=== PATIENT | male | born 1985 | race Caucasian/White ===

== ENCOUNTER 2017-10-14 14:00 | Emergency (ER) | payer OTHER ==
[~2017-10-14] VITALS: Ht 175.3 cm; Wt 81.7 kg
[~2017-10-14 14:00] MED LIST: ACETAMINOPHEN-1 EAC1 PO; AUGMENTIN 875-1 EACH PO; BACTRIM DS TAB1 EACH PO; IBUPROFEN 600600 M1 PO; IBUPROFEN 800800 M1 PO; LIDOCAINE VISC100 M1 SWISH&SPIT; MEDROLDOSEPACK PO; NAPROSYN500 MG PO; NOHOMEMEDICATIONS; NORCO 5-325 TA1 EACH PO; PENICILLIN V P500 MG PO; PENICILLIN VK500 M1 PO; PERCODAN TABLE1 EACH; PERMETHRIN60 GM TOP; POTASSIUM20 PO; PREDNISONE 20 M20 MG PO; PROAIR HFA8.5 GM INH; PROMETHAZINE12.5 M1 PO; ULTRAM 50MG TAB50 MG PO; VALIUM5 MG PO; VISTARIL 25 MG25 M1 OR; ZPAK PO
[2017-10-14] MEDS ORDERED: IBUPROFEN 600600 M1 PO (14:55)
[2017-10-14] MEDS ORDERED: PENICILLIN V P500 MG PO (14:55)
[2017-10-14 15:11] VITALS: BP 138/88
== END 2017-10-14 15:12 | disposition home or self-care (01) ==
LOC: M.ERS 14:00
DX: K02.9 Dental caries, unspecified (principal)

== ENCOUNTER 2019-06-08 21:07 | Emergency (ER) | payer OTHER ==
[~2019-06-08] VITALS: Ht 175.3 cm; Wt 81.7 kg
[2019-06-08] MEDS ORDERED: NEURONTIN 300300 M1 PO (23:04)
[2019-06-08] MEDS ORDERED: HYDROCODON-ACE1 EAC7 PO (23:04)
[2019-06-08] MEDS ORDERED: CYCLOBENZAPRINE5 MG PO (23:04)
[2019-06-08 23:20] VITALS: BP 139/76
== END 2019-06-08 23:20 | disposition home or self-care (01) ==
LOC: M.ERS 21:07
DX: S13.4XXA Sprain of ligaments of cervical spine, initial encounter (principal); R20.0 Anesthesia of skin; X58.XXXA Exposure to other specified factors, initial encounter; Y93.89 Activity, other specified; Y92.89 Other specified places as the place of occurrence of the external cause; Y99.8 Other external cause status

== ENCOUNTER 2019-07-06 19:20 | Emergency (ER) | payer OTHER ==
[~2019-07-06] VITALS: Ht 175.3 cm; Wt 81.7 kg
[~2019-07-06 19:20] MED LIST changes: +CYCLOBENZAPRINE5 MG PO; +HYDROCODON-ACE1 EAC7 PO; +NEURONTIN 300300 M1 PO
[2019-07-06] MEDS ORDERED: HYDROCODON-ACE1 EAC7 PO (19:58)
[2019-07-06] MEDS ORDERED: CYCLOBENZAPRINE5 MG PO (19:58)
[2019-07-06] MEDS ORDERED: NEURONTIN 300300 M1 PO (19:58)
[2019-07-06 20:06] VITALS: BP 135/80
== END 2019-07-06 20:07 | disposition home or self-care (01) ==
LOC: M.ERS 19:20
DX: S13.8XXA Sprain of joints and ligaments of other parts of neck, initial encounter (principal); W21.00XA Struck by hit or thrown ball, unspecified type, initial encounter; Y93.6A Activity, physical games generally associated with school recess, summer camp and children; Y92.89 Other specified places as the place of occurrence of the external cause; Y99.8 Other external cause status

== ENCOUNTER 2019-08-23 18:21 | Emergency (ER) | payer OTHER ==
[~2019-08-23] VITALS: Ht 175.3 cm; Wt 83.9 kg
[2019-08-23] MEDS ORDERED: MEDROLDOSEPACK PO (18:42)
[2019-08-23] MEDS ORDERED: ROBAXIN 750 MG750 MG PO (18:43)
[2019-08-23] MEDS ORDERED: NORCO 5-325 TA1 EAC1 PO (18:43)
[2019-08-23 19:04] VITALS: BP 127/77
== END 2019-08-23 19:06 | disposition home or self-care (01) ==
LOC: M.ERS 18:21
DX: M54.12 Radiculopathy, cervical region (principal)

== ENCOUNTER 2020-01-03 09:07 | Emergency (ER) | payer OTHER ==
[~2020-01-03] VITALS: Ht 175.3 cm; Wt 77.1 kg
[~2020-01-03 09:07] MED LIST changes: +NORCO 5-325 TA1 EAC1 PO; +ROBAXIN 750 MG750 MG PO
[2020-01-03 09:45] LABS: CALCIUM 7.6 mg/dL (8.5-10.1); CREATININE 1.3 mg/dL (0.6-1.3); HEMATOCRIT 45.6 % (42.0-52.0); HEMOGLOBIN 15.4 gm/dL (14.0-18.0); MCH 27.9 pg (26.0-34.0); MCHC 33.7 g/dL (28.0-37.0); MCV 82.9 fL (80.0-100.0); MPV 8.4 fl. (7.2-11.1); NUCLEATED RBCS 0 /100WBC; PLATELET COUNT* 307 thou/uL (150-400); POTASSIUM 4.1 mmol/L (3.5-5.1); RDW-CV 14.5 % (10.5-14.5); WBC 15.6 thou/uL (4.0-11.0)
[2020-01-03 09:49] LABS: ALBUMIN 3.1 g/dL (3.4-5.0); TOTAL BILIRUBIN 0.6 mg/dL (<0.1-1.0); TOTAL PROTEIN 6.8 g/dL (6.4-8.2)
[2020-01-03 10:27] LABS: ABSOLUTE LYMPHOCYTES 0.6 thou/uL (0.8-5.3); ABSOLUTE MONOCYTES 0.2 thou/uL (0.0-1.2); ABSOLUTE NEUTROPHILS 14.8 thou/uL (1.6-8.1); PLATELET ESTIMATE ADEQUATE
[2020-01-03] MEDS ORDERED: ZOFRAN ODT4 MG PO (10:49)
[2020-01-03 10:51] LABS: ICTOTEST (BILI CONFIRMATORY) Negative (Negative); URINE BILIRUBIN 1+ (Negative); URINE BLOOD NEGATIVE (Negative); URINE CLARITY CLEAR; URINE COLOR YELLOW; URINE GLUCOSE-RANDOM NEGATIVE (Negative); URINE KETONES NEGATIVE (Negative); URINE LEUKOCYTES-REFLEX NEGATIVE (Negative); URINE NITRITE-REFLEX NEGATIVE (Negative); URINE PROTEIN NEGATIVE (Negative); URINE SPECIFIC GRAVITY 1.025 (1.005-1.030); URINE UROBILINOGEN 0.2 E.U./dl (0.2-1.0)
[2020-01-03] MEDS ORDERED: ULTRAM 50MG TAB50 MG PO (11:04)
[2020-01-03 11:14] VITALS: BP 103/47
== END 2020-01-03 11:15 | disposition home or self-care (01) ==
LOC: M.ERS 09:07
PROVIDERS: Personal Emergency Response Attendant
DX: K52.9 Noninfective gastroenteritis and colitis, unspecified (principal)

== ENCOUNTER 2020-04-09 20:09 | Emergency (ER) | payer OTHER ==
[~2020-04-09] VITALS: Ht 175.3 cm; Wt 79.4 kg
[~2020-04-09 20:09] MED LIST changes: +ZOFRAN ODT4 MG PO
[2020-04-09 20:18] VITALS: BP 128/75
[2020-04-09] MEDS ORDERED: BACLOFEN 10MG T10 MG PO (20:21)
[2020-04-09] MEDS ORDERED: CLONIDINE HCL0.2 M2 PO (20:21)
[2020-04-09] MEDS ORDERED: ATIVAN0.5 M1 PO (20:27)
== END 2020-04-09 20:34 | disposition home or self-care (01) ==
LOC: M.ERS 20:09
DX: F11.23 Opioid dependence with withdrawal (principal); Z76.0 Encounter for issue of repeat prescription

== ENCOUNTER 2020-05-04 19:28 | Emergency (ER) | payer OTHER ==
[~2020-05-04] VITALS: Ht 175.3 cm; Wt 79.4 kg
[~2020-05-04 19:28] MED LIST changes: +ATIVAN0.5 M1 PO; +BACLOFEN 10MG T10 MG PO; +CLONIDINE HCL0.2 M2 PO
[2020-05-04] MEDS ORDERED: BACTRIM DS TAB1 EACH PO (19:54)
[2020-05-04] MEDS ORDERED: TRIAMCINOLONE A15 G1 TP (19:54)
[2020-05-04 20:00] VITALS: BP 134/59
== END 2020-05-04 20:00 | disposition home or self-care (01) ==
LOC: M.ERS 19:28
DX: L73.9 Follicular disorder, unspecified (principal); L24.7 Irritant contact dermatitis due to plants, except food

== ENCOUNTER 2020-09-14 10:47 | Emergency (ER) | payer OTHER ==
[~2020-09-14] VITALS: Ht 175.3 cm; Wt 79.4 kg
[~2020-09-14 10:47] MED LIST changes: +TRIAMCINOLONE A15 G1 TP
[2020-09-14] MEDS ORDERED: ZOFRAN ODT4 MG DISSOLVE (11:38)
[2020-09-14 11:47] VITALS: BP 110/65
== END 2020-09-14 11:48 | disposition home or self-care (01) ==
LOC: M.ERS 10:47
DX: U07.1 COVID-19 (principal)

== ENCOUNTER 2020-11-01 22:12 | Emergency (ER) | payer OTHER ==
[~2020-11-01] VITALS: Ht 175.3 cm; Wt 77.1 kg
[~2020-11-01 22:12] MED LIST changes: +ZOFRAN ODT4 MG DISSOLVE
[2020-11-01] MEDS ORDERED: SUBOXONE (22:18)
[2020-11-02 00:40] VITALS: BP 140/77
[2020-11-02] MEDS ORDERED: NAPROSYN500 MG PO (11:06)
[2020-11-02] MEDS ORDERED: PREDNISONE 20 M20 M1 PO (11:06)
[2020-11-02] MEDS ORDERED: AMOXICILLIN 50500 MG PO (11:06)
== END 2020-11-02 00:40 | disposition left against medical advice (07) ==
LOC: M.ERS 22:12
DX: M79.642 Pain in left hand (principal); M79.641 Pain in right hand

== ENCOUNTER 2020-11-02 10:37 | Emergency (ER) | payer OTHER ==
[~2020-11-02] VITALS: Ht 175.3 cm; Wt 77.1 kg
[~2020-11-02 10:37] MED LIST changes: +SUBOXONE
[2020-11-02 10:51] VITALS: BP 138/81
[2020-11-02] MEDS ORDERED: NAPROSYN500 MG PO (11:06)
[2020-11-02] MEDS ORDERED: AMOXICILLIN 50500 MG PO (11:06)
[2020-11-02] MEDS ORDERED: PREDNISONE 20 M20 M1 PO (11:06)
== END 2020-11-02 11:05 | disposition home or self-care (01) ==
LOC: M.ERS 10:37
DX: R22.33 Localized swelling, mass and lump, upper limb, bilateral (principal); K08.89 Other specified disorders of teeth and supporting structures; K02.9 Dental caries, unspecified; Z79.899 Other long term (current) drug therapy

== ENCOUNTER 2020-11-12 15:55 | Emergency (ER) | payer OTHER ==
[~2020-11-12] VITALS: Ht 175.3 cm; Wt 79.4 kg
[~2020-11-12 15:55] MED LIST changes: +AMOXICILLIN 50500 MG PO; +PREDNISONE 20 M20 M1 PO
[2020-11-12 17:08] VITALS: BP 135/80
== END 2020-11-12 17:08 | disposition home or self-care (01) ==
LOC: M.ERS 15:55
DX: S61.211A Laceration without foreign body of left index finger without damage to nail, initial encounter (principal); W26.8XXA Contact with other sharp object(s), not elsewhere classified, initial encounter; Y93.89 Activity, other specified; Y92.89 Other specified places as the place of occurrence of the external cause; Y99.8 Other external cause status